=== PATIENT | male | born 2000 | race Hispanic/Latino ===

== ENCOUNTER 2024-09-07 17:29 | Emergency (ER) | payer OTHER ==
[2024-09-07 18:20] LABS: #Basophils 0.03 10x3/uL (0.0-0.2); %Basophils 0.4 % (0.0-1.0); %Eosinophils 0.4 % (0.0-10.0); %Lymphocytes 21.1 % (21.0-51.0); %Monocytes 6.1 % (0.0-10.0); %Neutrophils 71.7 % (42.0-75.0); Hematocrit 49.4 % (42.0-52.0); Hemoglobin 16.6 g/dL (14.0-18.0); Mean Corpuscular HGB CONC 33.6 g/dL (32.0-36.0); Mean Corpuscular Hemoglobin 27.9 pg (27.0-31.0); Mean Corpuscular Volume 82.9 fL (78.0-98.0); Mean Platelet Volume 10.8 fL (7.4-10.4); Platelet Count 228 10x3/uL (130-400); RBC Distribution Width 12.8 % (11.5-14.5); Red Blood Cell (RBC) Count 5.96 mill/uL (4.70-6.10)
[2024-09-07 18:37] LABS: Anion Gap 18 mmol/L (10-20); Carbon Dioxide 21 mmol/L (22-29); Chloride 105 mmol/L (98-107); Potassium 4.5 mmol/L (3.5-5.1); Sodium 139 mmol/L (136-145)
[2024-09-07 18:38] LABS: ALT (SGPT) 59 U/L (8-55); AST (SGOT) 24 U/L (5-34); Albumin 4.5 g/dL (3.5-5.0); Alkaline Phosphatase 83 U/L (40-110); BUN (Urea Nitrogen) 10 mg/dL (8.9-20.6); Bilirubin, Total 0.9 mg/dL (0.2-1.2); Calc. Creatinine Clearance 0 mL/min (70-130); Calcium 9.8 mg/dL (7.8-10.44); Estimated GFR 114; Globulin 3.5 g/dL (2.4-3.5); Glucose 95 mg/dL (70-105); Magnesium 2.2 mg/dL (1.6-2.6)
[2024-09-07] MEDS ORDERED: Acetaminophen 500 MG TAB ONE (19:00)
[2024-09-07] MEDS ORDERED: Ketorolac Tromethamine 30 MG (1 mL) VIAL ONE (19:00)
[2024-09-07] MEDS ORDERED: Lidocaine 1% w/Epinephrine 1:100K 20 ML VIAL ONE (19:00)
[2024-09-07] MEDS ORDERED: Lidocaine 1% PF 5 ML VIAL ONE (19:04)
== END 2024-09-07 20:29 | disposition home or self-care (01) ==
LOC: ERS 17:29
DX: F41.1 Generalized anxiety disorder (principal); R51.9 Headache, unspecified
CPT/HCPCS: 20552; 36415; 70450; 80053; 83735; 85025; 96372; J1885